=== PATIENT | female | born 1950 | race Hispanic/Latino ===

== ENCOUNTER 2020-06-01 11:00 | Day surgery (SDC) | payer MEDICARE ==
[2020-06-01] MEDS ORDERED: Phenylephrine 2.5% Ophth Soln 5 ML BOT ONE (11:34)
[2020-06-01] MEDS ORDERED: Proparacaine 0.5% Opth 15 ML BOT ONE (12:29)
== END 2020-06-01 13:02 | disposition home or self-care (01) ==
LOC: SDC 11:00
PROVIDERS: ATTEND Ophthalmology
PROC: 085K3ZZ Destruction of Left Lens, Percutaneous Approach (ICD-10-PCS; principal; 2020-06-01)
DX: H26.492 Other secondary cataract, left eye (principal); Z88.0 Allergy status to penicillin; Z88.6 Allergy status to analgesic agent; Z91.030 Bee allergy status